=== PATIENT | female | born 1940 | race Caucasian/White ===

== ENCOUNTER 2020-12-21 03:37 | Inpatient (IN) ==
[2020-12-21] MEDS ORDERED: methylPREDNISolone 125 MG/2 ML VIAL IVP ONE (03:51)
[2020-12-21] MEDS ORDERED: Ipratropium/Albuterol Neb 3 ML IH ONE (04:00)
[2020-12-21] MEDS ORDERED: Ipratropium/Albuterol Neb 3 ML ONE (04:01)
[2020-12-21 04:19] LABS: Basophils % 0.4 %; Eosinophils % 0.4 %; Hematocrit 38.3 % (35.3-44.9); Hemoglobin 11.9 g/dL (11.5-15.4); Immature Granulocytes % 0.2 % (0-4); Lymphocytes # 5.1 K/mcL (0.6-4.6); Lymphocytes % 50.3 %; Mean Corpuscular HGB Conc 31.1 g/dL (31.6-35.5); Mean Corpuscular Hemoglobin 31.3 pg (28.0-33.3); Mean Corpuscular Volume 100.8 fL (83.0-100.0); Mean Platelet Volume 9.9 fL (9.4-12.4); Monocytes # 0.6 K/mcL (0.0-1.3); Monocytes % 5.4 %; Neutrophils # 4.4 K/mcL (1.6-8.9); Platelet Count 210 K/mcL (140-400); Red Cell Distribution Width 13.6 % (11.5-14.5); Segmented Neutrophils % 43.3 %; White Blood Count 10.2 K/mcL (4.3-11.1)
[2020-12-21] MEDS ORDERED: Isovue-370 500 ML BOTTLE IVP ONE (04:36)
[2020-12-21 04:41] LABS: BUN/Creatinine Ratio 39 (6-26); Blood Urea Nitrogen 25 mg/dL (8-23); Calcium 8.5 mg/dL (8.6-10.3); Carbon Dioxide 27 mEq/L (23-29); Chloride 100 mEq/L (98-107); Glucose 255 mg/dL (70-105); Osmolality,Calculated 293 (280-300); Potassium 3.7 mEq/L (3.5-5.1); Sodium 135 mEq/L (136-145); eGFR For African Americans > 60 (> 60); eGFR For Non-African Americans > 60 (> 60)
[2020-12-21 04:45] LABS: Troponin I 0.05 ng/mL (< 0.04)
[2020-12-21] MEDS ORDERED: cefTRIAXone 1,000 MG in Water for inj. (sterile) 10 ML IVP ONE (05:15)
[2020-12-21] MEDS ORDERED: Azithromycin 500 MG in D5% in Water 250 ML IVPB STA (05:15)
[2020-12-21] MEDS ORDERED: Naloxone 0.4 MG/ML INJ IVP PRN (07:34)
[2020-12-21] MEDS ORDERED: Ondansetron 4 MG/2 ML VIAL IVP PRN (07:34)
[2020-12-21] MEDS ORDERED: 0.9 % Sodium Chloride 1,000 ML IVC SCH (07:45)
[2020-12-21] MEDS: cefTRIAXone 2,000 MG in Water for inj. (sterile) 20 ML IVP SCH (13:53)
[2020-12-21] MEDS ORDERED: Albuterol 2.5 MG/3 ML NEBULIZER IH PRN (14:07)
[2020-12-21] MEDS: Ipratropium/Albuterol Neb 3 ML IH SCH ×2 (16:01→22:27)
[2020-12-21] MEDS: MethylPREDNISolone 40 MG/ML VIAL IVP SCH (16:16)
[2020-12-21] MEDS: Megestrol Acetate 400 MG/10 ML UDC PO SCH (19:50)
[2020-12-22] MEDS: MethylPREDNISolone 40 MG/ML VIAL IVP SCH ×2 (00:29→08:35)
[2020-12-22 01:04] LABS: Hematocrit 34.1 % (35.3-44.9); Hemoglobin 10.8 g/dL (11.5-15.4); Mean Corpuscular HGB Conc 31.7 g/dL (31.6-35.5); Mean Corpuscular Hemoglobin 31.2 pg (28.0-33.3); Mean Corpuscular Volume 98.6 fL (83.0-100.0); Mean Platelet Volume 9.8 fL (9.4-12.4); Platelet Count 182 K/mcL (140-400); Red Blood Count 3.46 M/mcL (3.82-4.97); Red Cell Distribution Width 13.5 % (11.5-14.5); White Blood Count 6.2 K/mcL (4.3-11.1)
[2020-12-22 01:23] LABS: BUN/Creatinine Ratio 42 (6-26); Blood Urea Nitrogen 22 mg/dL (8-23); Calcium 8.7 mg/dL (8.6-10.3); Carbon Dioxide 28 mEq/L (23-29); Chloride 102 mEq/L (98-107); Glucose 143 mg/dL (70-105); Osmolality,Calculated 290 (280-300); Potassium 3.9 mEq/L (3.5-5.1); Sodium 137 mEq/L (136-145); eGFR For African Americans > 60 (> 60); eGFR For Non-African Americans > 60 (> 60)
[2020-12-22] MEDS: Ipratropium/Albuterol Neb 3 ML IH SCH (04:04)
[2020-12-22] MEDS ORDERED: Azithromycin 500 MG in 0.9 % Sodium Chloride 250 ML IVPB SCH (08:00)
[2020-12-22] MEDS: Megestrol Acetate 400 MG/10 ML UDC PO SCH ×2 (08:32→20:54)
[2020-12-22] MEDS: cefTRIAXone 2,000 MG in Water for inj. (sterile) 20 ML IVP SCH (08:38)
[2020-12-22 09:21] LABS: Troponin I 0.09 ng/mL (< 0.04)
[2020-12-22] MEDS ORDERED: Ipratropium 1 PUFF INHALER IH SCH (10:00)
[2020-12-22] MEDS ORDERED: Levalbuterol 1 PUFF INHALER IH SCH (10:00)
[2020-12-22] MEDS ORDERED: Acetaminophen 325 MG TABLET PO PRN (11:23)
[2020-12-22 12:46] LABS: C-Reactive Protein < 5 mg/L (Less than 10)
[2020-12-22] MEDS ORDERED: Levalbuterol 1 PUFF INHALER IH PRN (15:15)
[2020-12-22] MEDS ORDERED: Ipratropium 1 PUFF INHALER IH PRN (15:15)
[2020-12-22] MEDS ORDERED: Perflutren Lipid Microsphere 1.3 ML in 0.9 % Sodium Chloride 8.7 ML IVP PRN (15:34)
[2020-12-22] MEDS ORDERED: Aspirin 81 MG TAB.CHEW PO SCH (15:45)
[2020-12-22 17:51] LABS: HIV-1&2 Antibody & p24 Ag Nonreactive (Nonreactive)
[2020-12-22 17:52] LABS: Hepatitis C Virus Antibody Nonreactive (Nonreactive)
[2020-12-22] MEDS ORDERED: *HR* Heparin 5,000 UNIT/ML VIAL SQ SCH (18:00)
[2020-12-22] MEDS ORDERED: *HR* Metoprolol 5 MG/5 ML VIAL IVP ONE (20:32)
[2020-12-23] MEDS ORDERED: *HR* Metoprolol 5 MG/5 ML VIAL IVP ONE (03:28)
[2020-12-23 04:43] LABS: Hematocrit 38.6 % (35.3-44.9); Immature Granulocytes % 0.6 % (0-4); Lymphocytes % 16.3 %; Mean Corpuscular HGB Conc 32.1 g/dL (31.6-35.5); Mean Corpuscular Hemoglobin 30.9 pg (28.0-33.3); Mean Corpuscular Volume 96.3 fL (83.0-100.0); Mean Platelet Volume 10.1 fL (9.4-12.4); Monocytes # 1.1 K/mcL (0.0-1.3); Neutrophils # 9.2 K/mcL (1.6-8.9); Platelet Count 199 K/mcL (140-400); Red Blood Count 4.01 M/mcL (3.82-4.97); Red Cell Distribution Width 13.4 % (11.5-14.5); Segmented Neutrophils % 74.1 %
[2020-12-23 04:44] LABS: Hemoglobin 12.4 g/dL (11.5-15.4); White Blood Count 12.4 K/mcL (4.3-11.1)
[2020-12-23 05:05] LABS: BUN/Creatinine Ratio 43 (6-26); Blood Urea Nitrogen 20 mg/dL (8-23); Calcium 9.1 mg/dL (8.6-10.3); Carbon Dioxide 30 mEq/L (23-29); Chloride 101 mEq/L (98-107); Glucose 101 mg/dL (70-105); Osmolality,Calculated 285 (280-300); Sodium 136 mEq/L (136-145); eGFR For African Americans > 60 (> 60); eGFR For Non-African Americans > 60 (> 60)
[2020-12-23 05:09] LABS: % Iron Saturation 29 % (15-50); Iron 84 mcg/dL (50-170); Transferrin 207 mg/dL (203-362)
[2020-12-23 05:26] LABS: Ferritin 77 ng/mL (10-120)
[2020-12-23 05:31] LABS: Folate 16.9 ng/mL (3.0-16.0)
[2020-12-23 06:49] VITALS: BP 166/107
[2020-12-23] MEDS ORDERED: Isovue-370 500 ML BOTTLE IVP ONE (07:22)
[2020-12-23] MEDS ORDERED: levoFLOXacin 750 MG/150 ML 750 MG/150 ML BAG IVPB SCH (09:00)
== END 2020-12-23 08:22 | disposition short-term general hospital (02) | DRG 871 ==
LOC: 2NENU 03:37 → EMEROOARM 03:37 → 2NENU 10:53 → SUATTDRO 16:00
PROVIDERS: ADMIT Internal Medicine; ATTEND Internal Medicine